=== PATIENT | male | born 1955 | race Caucasian/White ===

== ENCOUNTER 2017-05-04 14:41 | Emergency (ER) | payer OTHER ==
--- NOTE | 2017-05-04 14:47 | PDOC ---
History of Present Illness <Maine Back - Last Filed: 05/04/17 15:55> - General History Source: Patient Exam Limitations: No Limitations - History of Present Illness Initial Comments: 05/04/17 17:21 Patient is a 61 year old male with a significant past medical history of who presents to the ED with complaints of right leg wound that occured this afternoon. Patient reports shovelling snow this afternoon when he states he began to feeling slightly itchy on his right leg, and began bleeding profusely after scratching it. He reports placing napkins over the wound followed by duct taping the wound due to it being the only thing on hand to wrap the wound at the moment. Patient states this has happened before, and that he did duct tape the wound before as well but initially thought nothing of it. He reports being told by vascular surgeon that clotting of veins was dangerous, which prompted him to come into the ED for further evaluation. Patient states he experienced intermittent SOB as well as left sided chest pain while shoveling snow. He reports SOB and chest pain began to subside after a few moments of rest. Denies nausea, vomiting. Denies dizziness, headache. Denies fevers, chills. Denies any other symptoms. Allergies: None Social history: Current smoker (1 pack per day). Social drinker (last drink ). No illicit drugs. Surgical history: None PMD: Not on staff. <Denton Dumas - Last Filed: 05/04/17 17:21> - General Chief Complaint: Shortness of Breath Stated Complaint: SOB,BLEEDING FROM RIGHT LEG Time Seen by Provider: 05/04/17 14:46 Past History <Maine Back - Last Filed: 05/04/17 15:55> <Denton Dumas - Last Filed: 05/04/17 17:21> - Past Medical History Allergies/Adverse Reactions: Allergies Allergy/AdvReac Type Severity Reaction Status Date / Time No Known Allergies Allergy Verified 05/04/17 14:48 Home Medications: Ambulatory Orders NK [No Known Home Medication] 05/04/17 Review of Systems - Review of Systems Able to Perform ROS?: Yes Comments:: 05/04/17 17:21 GENERAL/CONSTITUTIONAL: No fever or chills. No weakness. HEAD, EYES, EARS, NOSE AND THROAT: No change in vision. No ear pain or discharge. No sore throat. CARDIOVASCULAR: +Chest pain. +SOB. RESPIRATORY: No cough, wheezing, or hemoptysis. GASTROINTESTINAL: No nausea, vomiting, diarrhea or constipation. GENITOURINARY: No dysuria, frequency, or change in urination. MUSCULOSKELETAL: No joint or muscle swelling or pain. No neck or back pain. SKIN: +Right lower leg wound. NEUROLOGIC: No headache, vertigo, loss of consciousness, or change in strength/ sensation. ENDOCRINE: No increased thirst. No abnormal weight change. HEMATOLOGIC/LYMPHATIC: No anemia, easy bleeding, or history of blood clots. ALLERGIC/IMMUNOLOGIC: No hives or skin allergy. All Other Systems: Reviewed and Negative <Denton Dumas - Last Filed: 05/04/17 17:21> *Physical Exam - Vital Signs Last Vital Signs Temp Pulse Resp BP Pulse Ox 98.1 F 82 18 137/87 95 05/04/17 14:42 05/04/17 14:42 05/04/17 14:42 05/04/17 14:42 05/04/17 14:42 - Physical Exam Comments: 05/04/17 17:21 GENERAL: Awake, alert, and fully oriented, in no acute distress HEAD: No signs of trauma EYES: PERRLA, EOMI, sclera anicteric, conjunctiva clear ENT: Auricles normal inspection, hearing grossly normal, nares patent, oropharynx clear without exudates. Moist mucosa NECK: Normal ROM, supple, no lymphadenopathy, JVD, or masses LUNGS: Breath sounds equal, clear to auscultation bilaterally. No wheezes, and no crackles HEART: Regular rate and rhythm, normal S1 and S2, no murmurs, rubs or gallops ABDOMEN: Soft, nontender, normoactive bowel sounds. No guarding, no rebound. No masses EXTREMITIES: +Right lower extremity varicose vein puncture wound with no active bleeding. Normal range of motion, no edema. No clubbing or cyanosis. No cords, erythema, or tenderness NEUROLOGICAL: Cranial nerves II through XII grossly intact. Normal speech, normal gait SKIN: Warm, Dry, normal turgor, no rashes or lesions noted. <Denton Dumas - Last Filed: 05/04/17 17:21> ED Treatment Course - LABORATORY CBC & Chemistry Diagram: 05/04/17 15:15 05/04/17 15:15 <Maine Back - Last Filed: 05/04/17 15:55> - LABORATORY CBC & Chemistry Diagram: 05/04/17 15:15 05/04/17 15:15 - ADDITIONAL ORDERS Additional order review: Laboratory Results 05/04/17 15:15 Sodium 138 Potassium 4.4 Chloride 104 Carbon Dioxide 25 Anion Gap 9 BUN 16 Creatinine 0.8 Creat Clearance w eGFR > 60 Random Glucose 116 H Calcium 9.9 Total Bilirubin 0.2 AST 18 ALT 21 Alkaline Phosphatase 66 Creatine Kinase 85 Troponin I < 0.03 L Total Protein 7.2 Albumin 4.3 05/04/17 15:15 RBC 5.32 MCV 90.0 MCHC 34.4 RDW 11.8 L MPV 8.9 Neutrophils % 63.2 Lymphocytes % 25.9 Monocytes % 6.9 Eosinophils % 2.4 Basophils % 1.6 <Denton Dumas - Last Filed: 05/04/17 17:21> Medical Decision Making - Medical Decision Making 05/04/17 15:55 patient presents to the ED complaining of bleeding varicose vein. Also reports that he had an episode of chest pain and shortness of breath while shoveling snow that resolved with rest. Patient is currently chest pain free. Bleeding varicose vein stopped with pressure at home. Plan was to keep patient for observation for stress test in the AM, but patient is adamant in his desire to go home. Will discharge patient home with strict instructions to return to the ED for recurrent chest pain or shortness of breath. PAtient promises that he will call his PMD for follow up tomorrow. <Maine Back - Last Filed: 05/04/17 15:55> *DC/Admit/Observation/Transfer - Discharge Dispostion Admit: No <Maine Back - Last Filed: 05/04/17 15:55> - Attestations Scribe Attestion: 05/04/17 17:21 Documentation prepared by Denton Dumas, acting as medical technologist chief for Maine Back MD, /DO. <Denton Dumas - Last Filed: 05/04/17 17:21> Diagnosis at time of Disposition: Varicose vein of leg Chest pain Qualifiers: Chest pain type: unspecified Qualified Code(s): R07.9 - Chest pain, unspecified - Discharge Dispostion Disposition: HOME Condition at time of disposition: Good - Referrals Referrals: Charly Rene MD [Staff Physician] - - Patient Instructions Printed Discharge Instructions: DI for Varicose Veins, DI for Chest Pain Additional Instructions: if the vein starts bleeding again, hold pressure for 15 minutes. If bleeding does not resolve, return to the ED. Return immediately to the ED for chest pain or shortness of breath. You may not perform strenous exertion until you are seen and cleared by your primary care doctor. Make sure that you call your doctor for a follow up appointment tomorrow. You are at risk of cardiac disease and you need to have a stress test.
[2017-05-04 15:10] VITALS: BP 137/87; PULSE 82; TEMP 98.1; BMI 29.3
[2017-05-04 15:30] LABS: BASO % 1.6 % (0-2.0); EOS % 2.4 % (0-4.5); HEMATOCRIT 47.8 % (35.4-49); HEMOGLOBIN 16.5 GM/dl (11.7-16.9); LYMPH % 25.9 % (8-40); MCHC 34.4 g/dl (32.0-35.9); MEAN PLT VOLUME 8.9 fl (7.5-11.1); MONO % 6.9 % (3.8-10.2); NEUT % 63.2 % (42.8-82.8); PLATELET COUNT 196 K/MM3 (134-434); RBC 5.32 M/mm3 (4.00-5.60); RDW 11.8 % (11.9-15.9); WHITE BLOOD COUNT 5.9 K/mm3 (4.0-10.8)
[2017-05-04 15:45] LABS: ALBUMIN 4.3 g/dl (3.5-5.0); ALK PHOS 66 U/L (32-92); ANION GAP 9 (8-16); BILIRUBIN,TOTAL 0.2 mg/dl (0.2-1.0); BLOOD UREA NITROGEN 16 mg/dl (7-18); CALCIUM 9.9 mg/dl (8.4-10.2); CHLORIDE 104 mmol/L (98-107); CO2 25 mmol/L (22-28); CREATININE 0.8 mg/dl (0.6-1.3); GLUCOSE,RANDOM 116 mg/dl (74-106); POTASSIUM 4.4 mmol/L (3.5-5.1); SGOT/AST 18 U/L (10-42); SGPT/ALT 21 U/L (10-40); SODIUM 138 mmol/L (136-145); TOT PROT 7.2 g/dl (6.4-8.3)
[2017-05-04 15:52] LABS: TROPONIN I (DFP) < 0.03 ng/ml (0.03-0.50)
--- NOTE | 2017-05-05 17:06 | EKG ---
Test Reason : Blood Pressure : / mmHG Vent. Rate : 081 BPM Atrial Rate : 081 BPM P-R Int : 168 ms QRS Dur : 094 ms QT Int : 396 ms P-R-T Axes : 077 064 066 degrees QTc Int : 460 ms SINUS RHYTHM with APCs ANTERIOR INFARCT , AGE UNDETERMINED NO PREVIOUS ECGS AVAILABLE Confirmed by MD JAVIER MARJORY ([id number]) on 05/05/2017 5:06:09 PM Referred By: DR GUERRERO Confirmed By:GARRY JAVIER MD
== END 2017-05-04 16:13 | disposition home or self-care (01) ==
LOC: FER 14:41
DX: R07.9 Chest pain, unspecified (principal); I86.8 Varicose veins of other specified sites; F17.210 Nicotine dependence, cigarettes, uncomplicated
CPT/HCPCS: 36415; 71045-TC; 80053; 82550; 84484; 85025; 93005; 99283-25